=== PATIENT | male | born 2000 | race Two or more races ===

== ENCOUNTER 2024-10-17 21:27 | Emergency (ER) | payer SELFPAY ==
--- OUTSIDE RECORDS SUMMARY | 2024-03-01 11:00 | XMS_ITS ---
Author Organization [facility] Address [address] [place] [address] Care Team Providers Care Processing Engineer Name Role Phone None, None Primary Care Provider TANNER Blanco [phone] REASON FOR VISIT New Patient - Hearing Concerns and Ear Cleaning Encounters Encounter Location Date Provider Diagnosis [facility] [address] [place] [address] 03/01/2024 TANNER GRIFFITHS Plan Of Treatment No Information Progress Notes * Channing PASTORDOB:03/1999 (24 yo M)Acc No.[id number]:03/01/2024 Patient: Channing Concepcion Provider: Nicky GRIFFITHS MD :2000 A ge:24 Y S ex:Male Date:03/01/2024 Address:[facility] [address] [facility] Subjective: * Chief Complaints: * N ew Patient - Hearing Concerns and Ear Cleaning * Electronic signature of KAROLYN GRIFFITHS MD on 10/17/2024 at 09:29 PM CDT Sign off status: Pending * Provider: Nicky GRIFFITHS MD Date: 1 05/02/2023 Generated for Olivia donohue/Lakia/eTransmitting on: 0 10/17/2024 09:29 PM CDT
--- OUTSIDE RECORDS SUMMARY | 2024-10-17 21:29 | XMS_ITS | Patient Health Record ---
Author Organization [facility] Address [address] [place] [address] Care Team Providers Care Receiver Dispatcher Name Role Phone None, None Primary Care Provider TANNER Blanco Unavailable [phone] Reason For Referral No Information Plan Of Treatment No Information Insurance Providers Payer Name Payer Address Payer Phone Subscriber Number Group Number Insured Name Patient Relationship to Insured Coverage Start Date Coverage End Date [facility] [address] [address] [place] [address] [id number] Channing Pastor Self - patient is the insured
[2024-10-17 21:30] VITALS: BP 106/71; PULSE 88; RESP 16; TEMP 37.1; O2SAT 97; BMI 37.6
--- NOTE | 2024-10-17 21:44 | ED.WOUNDLAC ---
HPI - Wound/Laceration General Time Seen by Provider: 21:44 Date Seen: 10/17/24 Chief Complaint: Laceration/Wound Stated Complaint: L thumb laceration Time Seen by Provider: 10/17/24 21:43 Source: patient and RN notes reviewed Mode of arrival: ambulatory Limitations: no limitations Related Data Home Medications ?Medication ?Instructions ?Recorded ?Confirmed No Known Home Medications 10/17/24 10/17/24 Allergies Allergy/AdvReac Type Severity Reaction Status Date / Time No Known Drug Allergies Allergy Verified 04/02/24 12:46 Exam Const: Vital Signs, click to edit/add: Vital Signs - 24 hr 10/17/24 21:30 Temperature 98.8 F Pulse Rate [Pulse Oximeter] 88 Respiratory Rate 16 Blood Pressure [Ri ght Upper Arm] 106/71 Pulse Oximetry 97 Oxygen Delivery Me thod Room Air Course Vital Signs Vital signs: Initial Vital Signs Temperature 98.8 F 10/17/24 21:30 Temperature Source Temporal Artery Scan 10/17/24 21:30 Pulse Rate 88 10/17/24 21:30 Pulse Rhythm Regular 10/17/24 21:30 Respiratory Rate 16 10/17/24 21:30 Blood Pressure 106/71 10/17/24 21:30 Blood Pressure Mean 82 10/17/24 21:30 Blood Pressure Position Sitting 10/17/24 21:30 Pulse Oximetry 97 10/17/24 21:30 Oxygen Delivery Method Room Air 10/17/24 21:30 Vital Signs Temperature 98.8 F 10/17/24 21:30 Pulse Rate 88 10/17/24 21:30 Respiratory Rate 16 10/17/24 21:30 Blood Pressure 106/71 10/17/24 21:30 Pulse Oximetry 97 10/17/24 21:30 Oxygen Delivery Method Room Air 10/17/24 21:30 Temperature 98.8 F 10/17/24 21:30 Pulse Rate 88 10/17/24 21:30 Respiratory Rate 16 10/17/24 21:30 Blood Pressure 106/71 10/17/24 21:30 Pulse Oximetry 97 10/17/24 21:30 Oxygen Delivery Method Room Air 10/17/24 21:30 Discharge Plan Discharge Prescriptions: No Action No Known Home Medications Follow Up/Referrals: Provider,Not a Local [Primary Care Provider, Family Practice]
--- NOTE | 2024-10-17 21:54 | ED.WOUNDLAC ---
HPI - Wound/Laceration General Date Seen: 10/17/24 Chief Complaint: Laceration/Wound Stated Complaint: L thumb laceration Time Seen by Provider: 10/17/24 21:43 Source: patient and RN notes reviewed Mode of arrival: ambulatory Limitations: no limitations History of Present Illness HPI narrative: Channing is a very pleasant 24-year-old male with a tetanus is out of date not having the vaccination since 2009 who comes to the emergency room for evaluation regarding left thumb injury. Annabelle was using a knife to prepare supper tonight and slipped. It caused a flap on the very tip of his thumb just under the thumbnail. Patient immediately washed this under the kitchen sink. He really has not a lot of pain. There is no more bleeding. He works in construction. Related Data Home Medications ?Medication ?Instructions ?Recorded ?Confirmed No Known Home Medications 10/17/24 10/17/24 Allergies Allergy/AdvReac Type Severity Reaction Status Date / Time No Known Drug Allergies Allergy Verified 04/02/24 12:46 Exam Narrative: Exam Narrative: Alert and oriented very pleasant gentleman in no acute distress. Examination of the left thumb shows a half flap that is in very good approximation on the very distal aspect of the left thumb. This is measuring 5 mm by 1 cm. Wound is hemostatic. He has some numbness over the flap itself but otherwise sensations intact and there is good capillary refill. Const: Vital Signs, click to edit/add: Vital Signs - 24 hr 10/17/24 21:30 Temperature 98.8 F Pulse Rate [Pulse Oximeter] 88 Respiratory Rate 16 Blood Pressure [Ri ght Upper Arm] 106/71 Pulse Oximetry 97 Oxygen Delivery Me thod Room Air Documenting provider has reviewed patient's vital signs: yes Course Course ED Course: At this time I would not move the flap as it appears to have fallen back into good approximation. I offered glue to protect this area patient agrees. I also highly suggest Adacel for tetanus update. Initially, patient is receptive. He later on changes his mind. Reevaluation(s) Reevaluation #1: Dermabond applied in a double-layer over the flap laceration. Patient tolerated procedure well. Vital Signs Vital signs: Initial Vital Signs Temperature 98.8 F 10/17/24 21:30 Temperature Source Temporal Artery Scan 10/17/24 21:30 Pulse Rate 88 10/17/24 21:30 Pulse Rhythm Regular 10/17/24 21:30 Respiratory Rate 16 10/17/24 21:30 Blood Pressure 106/71 10/17/24 21:30 Blood Pressure Mean 82 10/17/24 21:30 Blood Pressure Position Sitting 10/17/24 21:30 Pulse Oximetry 97 10/17/24 21:30 Oxygen Delivery Method Room Air 10/17/24 21:30 Vital Signs Temperature 98.8 F 10/17/24 21:30 Pulse Rate 88 10/17/24 21:30 Respiratory Rate 16 10/17/24 21:30 Blood Pressure 106/71 10/17/24 21:30 Pulse Oximetry 97 10/17/24 21:30 Oxygen Delivery Method Room Air 10/17/24 21:30 Temperature 98.8 F 10/17/24 21:30 Pulse Rate 88 10/17/24 21:30 Respiratory Rate 16 10/17/24 21:30 Blood Pressure 106/71 10/17/24 21:30 Pulse Oximetry 97 10/17/24 21:30 Oxygen Delivery Method Room Air 10/17/24 21:30 MDM - Wound/Laceration MDM Narrative Medical decision making narrative: 1. Laceration on thumb-advised patient to leave the Dermabond in place as long as possible. As this area heals I do not know if the flap will actually be viable. Would not be surprised i if it does eventually fall off. However, before such time would recommend covering this to prevent any sort of catching or pulling of it. 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 Ibuprofen or Tylenol as needed for pain. Follow-up for signs and symptoms of infection which we discussed tonight. 2. Disposition-return as needed. Discharge Plan Discharge Clinical Impression: Laceration, Tetanus toxoid vaccination declined Patient Disposition: Home, Self-Care Condition: Improved Additional Instructions: You may wash your hands. Do not use any oil substance on your hands as this may dissolve the glue. Try not to pick the glue away. You will have to pay attention to trimming her nail as it grows out. Try not to use your thumb over the next 3 days. A note for your working is included in your discharge instructions. Return for worsening symptoms. If you change your mind about the tetanus vaccination which I strongly recommend he receive please return to the ER or follow-up at your clinic. Prescriptions: No Action No Known Home Medications Follow Up/Referrals: Provider,Not a Local [Primary Care Provider, Family Practice] Stand Alone Forms: [email or web address] Info Instructions
== END 2024-10-17 22:09 | disposition home or self-care (01) ==
PROVIDERS: Emergency Provider Family Medicine
DX: S61.012A Laceration without foreign body of left thumb without damage to nail, initial encounter (principal); W26.0XXA Contact with knife, initial encounter
CPT/HCPCS: 12001; 99282; 99283